=== PATIENT | female | born 1975 | race Caucasian/White ===

== ENCOUNTER → 2020-09-16 | Outpatient (CLI) | payer OTHER | END | disposition home or self-care (01) | LOC: RAD 12:17 | PROVIDERS: ATTEND Nurse Practitioner Family | DX: R31.9 Hematuria, unspecified (principal) ==

== ENCOUNTER → 2021-11-01 | Outpatient (CLI) | payer OTHER | END | disposition home or self-care (01) | LOC: CT 09:52 | PROVIDERS: ATTEND Nurse Practitioner Family | DX: J32.0 Chronic maxillary sinusitis (principal); H92.03 Otalgia, bilateral ==

== ENCOUNTER → 2021-11-25 | Outpatient (CLI) | payer OTHER | END | disposition home or self-care (01) | LOC: CT 02:04 | PROVIDERS: ATTEND Nurse Practitioner Family | DX: H92.03 Otalgia, bilateral (principal); H70.93 Unspecified mastoiditis, bilateral; F41.9 Anxiety disorder, unspecified; R42 Dizziness and giddiness ==